=== PATIENT | male | born 1950 | race Two or more races ===

== ENCOUNTER → 2019-04-07 | Outpatient (CLI) | payer OTHER | END | disposition home or self-care (01) | LOC: RAD 15:43 | DX: R10.84 Generalized abdominal pain (principal); R18.8 Other ascites ==

== ENCOUNTER 2019-04-08 07:22 | Outpatient (CLI) | payer OTHER | END 2019-04-08 07:30 | disposition home or self-care (01) | LOC: SONOGRAMA 07:22 → MAMO-SONO 08:45 | DX: R18.8 Other ascites (principal); R10.84 Generalized abdominal pain ==